=== PATIENT | male | born 1990 | race African-American/Black ===

== ENCOUNTER 2024-05-12 10:13 | Emergency (ER) | payer MEDICAID ==
[~2024-05-12] VITALS: Ht 188 cm; Wt 160.0 kg
[2024-05-12 10:23] VITALS: PULSE 78; RESP 18; O2SAT 99
[2024-05-12 10:25] VITALS: BP 133/68; TEMP 36.8; O2SAT 95
[2024-05-12 11:06] LABS: BASOPHILS % 0.8 % (0.0-2.0); EOSINOPHILS % 3.4 % (0.0-5.0); HEMATOCRIT. 40.1 % (42.0-52.0); HEMOGLOBIN. 13.1 g/dL (14.0-18.0); LYMPHOCYTES % 24.2 % (20.0-50.0); MEAN CORPUSCULAR HEMOGLOBIN 29.3 pg (28.0-32.0); MEAN CORPUSCULAR HGB CONC 32.7 g/dL (31.0-37.0); MEAN CORPUSCULAR VOLUME 89.7 fL (80.0-94.0); MEAN PLATELET VOLUME 7.9 fl (7.4-10.4); MONOCYTES % 5.6 % (2.0-8.0); PLATELET 257 x1000/uL (130-400); RED BLOOD CELL COUNT 4.47 mill/uL (4.7-6.1); RED CELL DISTRIBUTION WIDTH 14.8 % (11.6-14.6); WHITE BLOOD COUNT 11.7 x1000/uL (4.5-11.0)
[2024-05-12 11:25] LABS: CHLORIDE 106 mEq/L (98-107); POTASSIUM 3.7 mEq/L (3.5-5.1); SODIUM 142 mEq/L (136-145)
[2024-05-12 11:26] LABS: CALCIUM 9.8 mg/dL (8.7-10.4); CARBON DIOXIDE 30 mEq/L (21-32)
[2024-05-12 11:31] LABS: GLUCOSE 124 mg/dL (70-105)
[2024-05-12 11:32] LABS: UREA NITROGEN BLOOD 10 mg/dL (9-23)
[2024-05-12 14:06] LABS: CLARITY URINE CLEAR (CLEAR); COLOR URINE YELLOW (YELLOW); GLUCOSE URINE NEGATIVE (NEGATIVE); KETONES URINE TRACE (NEGATIVE); LEUKOCYTE ESTERASE URINE 1+ (NEGATIVE); NITRITE URINE NEGATIVE (NEGATIVE); OCCULT BLOOD URINE NEGATIVE (NEGATIVE); PROTEIN URINE NEGATIVE (NEGATIVE); SPECIFIC GRAVITY URINE 1.025 (1.005-1.030); UROBILINOGEN URINE 0.2 E.U./dL (0.2-1.0)
[2024-05-12] MEDS ORDERED: CIPR-263 MT (14:53)
[2024-05-12] MEDS ORDERED: TOPUD MT (14:53)
[2024-05-12] MEDS ORDERED: IBUP-1525 MT (14:53)
[2024-05-12 15:01] LABS: BACTERIA URINE 1+; RBC URINE NONE SEEN /hpf (0-2); SQUAMOUS EPITHELIAL CELL URINE 1+ /lpf (RARE/1+); WBC URINE 25-50 /hpf (0-2); YEAST URINE NONE SEEN
== END 2024-05-12 15:00 | disposition home or self-care (01) ==
LOC: ER 10:13
DX: R31.9 Hematuria, unspecified (principal); E11.9 Type 2 diabetes mellitus without complications
CPT/HCPCS: 36415; 80048; 81003; 85025; 87077; 99283

== ENCOUNTER 2024-12-28 20:06 | Emergency (ER) | payer MEDICAID ==
[~2024-12-28] VITALS: Ht 177.8 cm; Wt 163.2 kg
[~2024-12-28 20:06] MED LIST: CIPR-263 MT; IBUP-1525 MT; TOPUD MT
[2024-12-28 20:15] VITALS: TEMP 36.9; O2SAT 98
[2024-12-28] MEDS: ACETAMINOPHEN 325MG TABLET PO ONE (22:14)
[2024-12-28] MEDS: LIDOCAINE HCL 1% 20ML VIAL INFIL ONE (22:15)
[2024-12-29] VITALS: BP 125/75; PULSE 79; RESP 17; O2SAT 100
== END 2024-12-29 00:01 | disposition home or self-care (01) ==
LOC: ER 20:06
DX: S61.511A Laceration without foreign body of right wrist, initial encounter (principal); S61.512A Laceration without foreign body of left wrist, initial encounter; E11.9 Type 2 diabetes mellitus without complications; W01.0XXA Fall on same level from slipping, tripping and stumbling without subsequent striking against object, initial encounter; Y93.89 Activity, other specified; Y92.89 Other specified places as the place of occurrence of the external cause; Y99.8 Other external cause status
CPT/HCPCS: 73110; 73130; 12004; 99284; J2003; Z7610; 12002

== ENCOUNTER 2025-01-09 13:39 | Emergency (ER) | payer MEDICAID ==
[~2025-01-09] VITALS: Ht 185.4 cm; Wt 133.0 kg
[2025-01-09 13:48] VITALS: BP 122/77; TEMP 36.8; O2SAT 98
[2025-01-09 14:15] VITALS: PULSE 86; RESP 18; O2SAT 99
== END 2025-01-09 15:19 | disposition home or self-care (01) ==
LOC: ER 13:39
DX: S61.411D Laceration without foreign body of right hand, subsequent encounter (principal); E11.9 Type 2 diabetes mellitus without complications; X58.XXXD Exposure to other specified factors, subsequent encounter
CPT/HCPCS: 99282